=== PATIENT | female | born 2000 | race Caucasian/White ===

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

== ENCOUNTER 2023-10-21 13:50 | Emergency (ER) | payer SELFPAY ==
[~2023-10-21] VITALS: Ht 157.5 cm; Wt 55.8 kg
[2023-10-21 14:10] VITALS: BP 120/68; PULSE 93; RESP 16; TEMP 98; O2SAT 100
[2023-10-21] MEDS ORDERED: ONDANSETRON 4 MG ODT PO ONE (15:15)
[2023-10-21] MEDS ORDERED: DICYCLOMINE HCL LIQUID 20 MG, ALUMINUM HYD/MAG/SIMETHICONE 30 ML, LIDOCAINE VISCOUS 2% ... PO ONE ×3 (16:05)
[2023-10-21] MEDS ORDERED: ALUMINUM HYD/MAG/SIMETHICONE 30 ML UDC ONE (16:09)
[2023-10-21] MEDS ORDERED: DICYCLOMINE HCL LIQUID 10 MG/5 ML UDC ONE (16:10)
[2023-10-21] MEDS ORDERED: ONDA-188 SL (16:55)
[2023-10-21] MEDS ORDERED: MAG355OR2 PO (16:55)
[2023-10-21 17:14] VITALS: BP 122/66; PULSE 89; RESP 18; TEMP 98.2
[2023-10-21 18:53] VITALS: O2SAT 100
== END 2023-10-21 17:16 | disposition home or self-care (01) ==
LOC: MED 13:50
DX: A05.9 Bacterial foodborne intoxication, unspecified (principal); R19.7 Diarrhea, unspecified; Z79.899 Other long term (current) drug therapy
CPT/HCPCS: 81002; 81025; 99283; Q0162